=== PATIENT | female | born 1975 | race American Indian/Alaskan Native ===

== ENCOUNTER 2017-10-20 08:51 | Emergency (ER) | payer OTHER ==
[2017-10-20 09:50] VITALS: BP 135/94
[2017-10-20] MEDS ORDERED: MOTRIN PO ONE (11:46)
[2017-10-20] MEDS ORDERED: TYLENOL PO ONE (11:46)
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
== END 2017-10-20 12:17 | disposition home or self-care (01) ==
LOC: ED 08:51
DX: M79.601 Pain in right arm (principal); F17.200 Nicotine dependence, unspecified, uncomplicated
CPT/HCPCS: 99282

== ENCOUNTER 2021-04-06 07:42 | Emergency (ER) | payer SELFPAY | END 2021-04-06 08:42 | disposition left against medical advice (07) | LOC: ED 07:42 | DX: R51.9 Headache, unspecified (principal); Z53.21 Procedure and treatment not carried out due to patient leaving prior to being seen by health care provider ==